=== PATIENT | female | born 1985 | race African-American/Black ===

== ENCOUNTER 2017-03-01 18:52 | Emergency (ER) | payer BC ==
[2017-03-01 18:52] VITALS: BP 170/95; PULSE 125; RESP 16; TEMP 97.6; O2SAT 100
[~2017-03-01 18:52] MED LIST: ANTISOL30 EACH EAR; DOXY100T17 PO; DYAZ37.57 PO; MIREIUD IU; ST JTAB PO
--- NOTE | 2017-03-01 20:51 | PD ---
HPI Chief Complaint: Abdominal Pain Time Seen by Provider: 20:41 Travel History International Travel<30 days: No Contact w/Intl Traveler<30days: No Traveled to known affect area: No History of Present Illness HPI Patient comes in complaining of intermittent abdominal cramping ongoing for 7 days. Patient reports associated nausea. Patient denies any vomiting, loss or change in bowel or bladder, vaginal discharge, fevers, headache, shortness of breath, chest pain, or . Patient reports pain is in her back when she has pain in her abdomen. Denies anything making it better or worse. Patient reports she was recently started on medication by her customer services manager secondary to heavy menstruations passing clots. Patient reports that she is supposed be taking iron supplements per her customer services manager recommendations secondary to her anemia, but the patient states she is not very good at taking this. PFSH Past Medical History Asthma: Yes (" A CHILD") Blood Disorders: No Cancer: No Cardiovascular Problems: Yes Chemotherapy: No Chest Pain: Yes Endocrine: No Genitourinary: No Hypertension: Yes Immune Disorder: No Musculoskeletal: Yes Neurologic: No Psychiatric: No Reproductive: No Respiratory: Yes Radiation Therapy: No ?: Unknown LMP: December : 2 Para: 2 Past Surgical History AICD: No Arteriovenous Shunt: No Insulin Pump: No Joint Replacement: No Pacemaker: No Social History Alcohol Use: No Tobacco Use: No Substance Use: No Allergies-Medications (Allergen,Severity, Reaction): Coded Allergies: No Known Allergies (Verified Adverse Reaction, Unknown, 03/01/17) VERIFIED AND UPDATED 11/08/05 Reported Meds & Prescriptions Reported Meds & Active Scripts Active Zofran Odt (Ondansetron Odt) 4 Mg Tab 4 Mg SL Q6HR PRN Tramadol (Tramadol HCl) 50 Mg Tab 50 Mg PO Q8H PRN Reported Norethindrone (Norethindrone Acetate) 5 Mg Tab 5 Mg PO BID Review of Systems Except as stated in HPI: all other systems reviewed are Neg Physical Exam Narrative GENERAL: Well-developed, overly nourished, in no acute distress, and non-ill appearing. SKIN: Focused skin assessment warm and dry. HEAD: Atraumatic. Normocephalic. EYES: Pupils equal and round. EOMI. No scleral icterus. No injection or drainage. ENT: No nasal bleeding or discharge. Mucous membranes pink and moist. NECK: Trachea midline. Supple. No nuclear rigidity. CARDIOVASCULAR: Regular rate and rhythm. No murmur appreciated. RESPIRATORY: No accessory muscle use. No respiratory distress. Clear to auscultation. Breath sounds equal bilaterally. GASTROINTESTINAL: Abdomen soft, non-tender, nondistended, and no guarding. Hepatic and splenic margins not palpable. Normal bowel sounds 4. No pulsatile mass. MUSCULOSKELETAL: No obvious deformities. No clubbing. No cyanosis. No edema. Full range of motion. NEUROLOGICAL: Awake and alert. No obvious cranial nerve deficits. Motor grossly within normal limits. Normal speech. PSYCHIATRIC: Appropriate mood and affect; insight and judgment normal. Data Data Last Documented VS Vital Signs Date Time Temp Pulse Resp B/P (MAP) Pulse Ox O2 Delivery O2 Flow Rate FiO2 03/01/17 23:55 105 20 137/84 (101) 100 03/01/17 21:25 Room Air 03/01/17 18:52 97.6 Orders Orders Complete Blood Count With Diff (03/01/17 20:47) Comprehensive Metabolic Panel (03/01/17 20:47) Lipase (03/01/17 20:47) Urinalysis - C+S If Indicated (03/01/17 20:47) Iv Access Insert/Monitor (03/01/17 20:47) Ecg Monitoring (03/01/17 20:47) Oximetry (03/01/17 20:47) Ondansetron Inj (Zofran Inj) (03/01/17 21:00) Sodium Chloride 0.9% Flush (Ns Flush) (03/01/17 21:00) Ed Urine Pregnancytest Poc (03/01/17 20:47) Electrocardiogram (03/01/17 21:09) Ct Abd/Pel W Iv Contrast(Rout) (03/01/17 21:57) Iohexol 350 Inj (Omnipaque 350 Inj) (03/01/17 22:34) Ed Discharge Order (03/01/17 23:05) Labs Laboratory Tests Test 03/01/17 21:05 03/01/17 21:15 Urine Color YELLOW Urine Turbidity CLEAR Urine pH 6.0 Urine Specific Tiline 1.035 Urine Protein TRACE mg/dL Urine Glucose (UA) NEG mg/dL Urine Ketones 80 mg/dL Urine Occult Blood NEG Urine Nitrite NEG Urine Bilirubin NEG Urine Urobilinogen 2.0 MG/DL Urine Leukocyte Esterase SMALL Urine RBC 1 /hpf Urine WBC 5 /hpf Urine Squamous Epithelial Cells 3 /hpf Urine Amorphous Sediment RARE Urine Mucus MANY /lpf Microscopic Urinalysis Comment CULT NOT INDICATED White Blood Count 6.2 TH/MM3 Red Blood Count 4.32 MIL/MM3 Hemoglobin 7.5 GM/DL Hematocrit 25.4 % Mean Corpuscular Volume 58.8 FL Mean Corpuscular Hemoglobin 17.3 PG Mean Corpuscular Hemoglobin Concent 29.3 % Red Cell Distribution Width 20.1 % Platelet Count 493 TH/MM3 Mean Platelet Volume 8.2 FL Neutrophils (%) (Auto) 51.4 % Lymphocytes (%) (Auto) 41.6 % Monocytes (%) (Auto) 5.8 % Eosinophils (%) (Auto) 0.6 % Basophils (%) (Auto) 0.6 % Neutrophils # (Auto) 3.2 TH/MM3 Lymphocytes # (Auto) 2.6 TH/MM3 Monocytes # (Auto) 0.4 TH/MM3 Eosinophils # (Auto) 0.0 TH/MM3 Basophils # (Auto) 0.0 TH/MM3 CBC Comment DIFF FINAL Differential Comment Blood Urea Nitrogen 8 MG/DL Creatinine 0.74 MG/DL Random Glucose 78 MG/DL Total Protein 8.1 GM/DL Albumin 3.5 GM/DL Calcium Level 8.5 MG/DL Alkaline Phosphatase 59 U/L Aspartate Amino Transf (AST/SGOT) 17 U/L Alanine Aminotransferase (ALT/SGPT) 19 U/L Total Bilirubin 0.2 MG/DL Sodium Level 138 MEQ/L Potassium Level 3.6 MEQ/L Chloride Level 108 MEQ/L Carbon Dioxide Level 22.1 MEQ/L Anion Gap 8 MEQ/L Estimat Glomerular Filtration Rate 110 ML/MIN Lipase 211 U/L [facility] Medical Decision Making Medical Screen Exam Complete: Yes Emergency Medical Condition: Yes Interpretation(s) Last Impressions Abdomen/Pelvis CT 03/01/174 Signed Impressions: Service Date/Time: Wednesday, March 01, 2017 22:16 - CONCLUSION: 8 cm uterine mass. Joseph Deleon MD Differential Diagnosis UTI, pancreatitis, metabolic disturbance, dehydration, gastritis, other Narrative Course Patient in no obvious distress upon re-evaluation. All pertinent laboratory/ Radiology result(s) discussed with patient. Discussed patient with Dr. Villa, who saw and evaluated the patient is in agreement with plan of care and disposition. Any questions/concerns in reference to patient diagnosis/ condition discussed and clarified prior to patient's discharge. Reinforced sheer importance of close follow up with patient's primary physician or primary care clinic. Instructed patient to return to ED immediately, if symptoms return/ worsen. Patient showed understanding of above instructions. Further instructions and recommendations were detailed in discharge paperwork. Patient ambulated without difficulty out of ED at discharge. Diagnosis Primary Impression: Uterine mass Additional Impression: Anemia Qualified Codes: D64.9 - Anemia, unspecified Patient Instructions: General Instructions Additional Instructions: Follow-up with your customer services manager as scheduled for further evaluation of the mass noted on CT today. Take iron supplements as previously instructed by your customer services manager to help improve your anemia. Take all medication as prescribed. Return to the emergency department if symptoms get worse. Med/Other Pt SpecificInfo: Prescription(s) given Scripts Ondansetron Odt (Zofran Odt) 4 Mg Tab 4 MG SL Q6HR Y for Nausea/Vomiting, #12 TAB 0 Refills Prov: Jeremy Villa MD 03/01/17 Tramadol (Tramadol) 50 Mg Tab 50 MG PO Q8H Y for PAIN GREATER THAN 7, #7 TAB 0 Refills Prov: Jeremy Villa MD 03/01/17 Disposition: 01 DISCHARGE HOME Condition: Stable Rafa Ambriz Mar 01, 2017 20:51
[2017-03-01] MEDS ORDERED: ONDANSETRON HCL 4 MG/2 ML VIAL IVP ONE (21:00)
[2017-03-01] MEDS ORDERED: SODIUM CHLORIDE 0.9% FLUSH 10 ML FLUSH IV FLUSH PRN (21:00)
[2017-03-01 21:25] VITALS: BP 144/69; PULSE 88; RESP 20; O2SAT 100
[2017-03-01] MEDS ORDERED: NORE5TAB PO (21:33)
[2017-03-01 21:45] LABS: AUTOMATED NEUTROPHIL # 3.2 TH/MM3 (1.8-7.7); BASOPHIL % 0.6 % (0.0-2.0); EOSINOPHIL % 0.6 % (0.0-4.0); HEMATOCRIT 25.4 % (35.0-46.0); HEMO FLAGS DIFF FINAL; LYMPH % 41.6 % (9.0-44.0); LYMPHOCYTE # 2.6 TH/MM3 (1.0-4.8); MEAN CELL VOLUME 58.8 FL (80.0-100.0); MEAN CORPUSCULAR HEMOGLOBIN 17.3 PG (27.0-34.0); MEAN CORPUSCULAR HGB CONC 29.3 % (32.0-36.0); MONO % 5.8 % (0.0-8.0); NEUT % 51.4 % (16.0-70.0); PLATELET COUNT 493 TH/MM3 (150-450); RED BLOOD COUNT 4.32 MIL/MM3 (4.00-5.30); RED CELL DISTRIBUTION WIDTH 20.1 % (11.6-17.2); WHITE BLOOD COUNT 6.2 TH/MM3 (4.0-11.0)
[2017-03-01 21:53] LABS: BLOOD, URINE NEG (NEG); COMMENT (UR) CULT NOT INDICATED; CULTURE IF INDICATED CULT NOT INDICATED; GLUCOSE,URINE NEG (NEG); KETONE, URINE 80 mg/dL (NEG); MUCUS URINE MANY /lpf (OCC); NITRITE,URINE NEG (NEG); SQUAMOUS EPITHELIAL CELL URINE 3 /hpf (0-5); URINE COLOR YELLOW (YELLW/STRAW)
[2017-03-01 22:08] LABS: ALT (GPT) 19 U/L (10-53); ANION GAP 8 MEQ/L (5-15); AST (GOT) 17 U/L (15-37); BICARBONATE 22.1 MEQ/L (21.0-32.0); BLOOD UREA NITROGEN 8 MG/DL (7-18); CHLORIDE 108 MEQ/L (98-107); GLOMERULAR FILTRATION RATE 110 ML/MIN (>89); POTASSIUM 3.6 MEQ/L (3.5-5.1); SODIUM (NA) 138 MEQ/L (136-145)
[2017-03-01 22:11] LABS: ALKALINE PHOSPHATASE 59 U/L (45-117); TOTAL BILIRUBIN ADULT 0.2 MG/DL (0.2-1.0)
[2017-03-01] MEDS ORDERED: IOHEXOL 350 MG/ML 10 ML VIAL (for RAD DIAG) IVCONTRAST ONE (22:34)
--- NOTE | 2017-03-01 22:48 | RADRPT ---
EXAM DATE/TIME: 03/01/2017 22:16 [facility] COMPARISON: No previous studies available for comparison. INDICATIONS : Diffuse abdominal pain with nausea and vomiting. IV CONTRAST: 80 cc Omnipaque 350 (iohexol) IV ORAL CONTRAST: No oral contrast ingested. RADIATION DOSE: 15.01 CTDIvol (mGy) MEDICAL HISTORY : Hypertension. SURGICAL HISTORY : Appendectomy. ENCOUNTER: Initial ACUITY: 1 day PAIN SCALE: 10/10 LOCATION: abdomen TECHNIQUE: Volumetric scanning of the abdomen and pelvis was performed. Using automated exposure control and ad justment of the mA and/or kV according to patient size, radiation dose was kept as low as reasonably achievable to obtain optimal diagnostic quality images. DICOM format image data is available electro nically for review and comparison. FINDINGS: LOWER LUNGS: The visualized lower lungs are clear. LIVER: Homogeneous density without lesion. There is no dilation of the biliary tree. No calcified gallston es. SPLEEN: Normal size without lesion. PANCREAS: Within normal limits. KIDNEYS: Normal in size and shape. There is no mass, stone or hydronephrosis. ADRENAL GLANDS: Within normal limits. VASCULAR: There is no aortic aneurysm. BOWEL/MESENTERY: No dilated loops of small or large bowel. No evidence of free fluid. ABDOMINAL WALL: Within normal limits. RETROPERITONEUM: There is no lymphadenopathy. BLADDER: No wall thickening or mass. REPRODUCTIVE: Abnormal appearance of the uterus with uterine enlargement and an 8 cm mass centrally; the mass is lo cated in the fundal region. The mass has fairly smooth margins and inhomogeneous pattern of enhancem ent. No evidence of free fluid in the cul-de-sac. Adnexal regions are grossly unremarkable. No jonathan dence of deep pelvic adenopathy. INGUINAL: There is no lymphadenopathy or hernia. MUSCULOSKELETAL: Within normal limits for patient age. No sclerotic lesions seen. CONCLUSION: 8 cm uterine mass. Joseph Deleon MD on March 01, 2017 at 22:43 Board Certified Radiologist. This report was verified electronically.
[2017-03-01] MEDS ORDERED: TRAM50TA PO (23:04)
[2017-03-01] MEDS ORDERED: ZOFR4TAB3 SL (23:04)
[2017-03-01 23:55] VITALS: BP 137/84
--- NOTE | 2017-03-02 10:32 | EKG ---
Date Performed: 03/01/2017 Time Performed: 21:09:56 PTAGE: 31 years EKG: Sinus rhythm WITH FIRST DEGREE AV BLOCK NONSPECIFIC T-WAVE ABNORMALITY ABNORMAL ECG PREVIOUS TRACING : 08/27/2011 17.53 DOCTOR: Alfredito Plascencia Interpretating Date/Time 03/02/2017 10:30:08
== END 2017-03-01 23:56 | disposition home or self-care (01) ==
LOC: NEPD 18:52
DX: N85.8 Other specified noninflammatory disorders of uterus (principal); D64.9 Anemia, unspecified; I10 Essential (primary) hypertension
CPT/HCPCS: 74177; 80053; 81001; 83690; 84703; 85025; 93005; 96374; 99285; J2405; Q9967

== ENCOUNTER 2017-05-09 05:26 | Observation (INO) | payer BC ==
[~2017-05-09] VITALS: Ht 162.6 cm; Wt 116.7 kg
[~2017-05-09 05:26] MED LIST changes: -ANTISOL30 EACH EAR; -DOXY100T17 PO; -DYAZ37.57 PO; -MIREIUD IU; +NORE5TAB PO; +OSEL30 PO; -ST JTAB PO
[2017-05-09] MEDS ORDERED: CHLORHEXIDINE GLUCONATE 2 % 1 PACK (2 CLOTHS) TOPICAL PRN (05:45)
[2017-05-09] MEDS ORDERED: METOPROLOL TARTRATE 25 MG TAB PO PRN (05:45)
[2017-05-09] MEDS ORDERED: SODIUM CHLORID 0.9% 500 ML IV PRN (05:45)
[2017-05-09] MEDS ORDERED: ceFAZolin 2 GM PREMIX 50 ML IV SCH ×2 (05:45→06:00)
[2017-05-09] MEDS ORDERED: POVIDONE IODINE 5% (ANTISEPSIS KIT) 4 APPLICATIONS EACH NARE PRN (05:45)
[2017-05-09] MEDS ORDERED: LACTATED RINGER'S 1000 ML IV PRN (05:45)
[2017-05-09 06:50] LABS: BASOPHIL % 0.7 % (0.0-2.0); EOSINOPHIL # 0.1 TH/MM3 (0-0.4); EOSINOPHIL % 3.6 % (0.0-4.0); HEMATOCRIT 30.1 % (35.0-46.0); HEMOGLOBIN 9.3 GM/DL (11.6-15.3); LYMPH % 52.3 % (9.0-44.0); LYMPHOCYTE # 1.5 TH/MM3 (1.0-4.8); MEAN CORPUSCULAR HEMOGLOBIN 19.8 PG (27.0-34.0); MEAN PLATELET VOLUME 8.3 FL (7.0-11.0); MONO % 7.3 % (0.0-8.0); MONOCYTE # 0.2 TH/MM3 (0-0.9); NEUT % 36.1 % (16.0-70.0); PLATELET COUNT 419 TH/MM3 (150-450); RED BLOOD COUNT 4.71 MIL/MM3 (4.00-5.30); RED CELL DISTRIBUTION WIDTH 23.9 % (11.6-17.2); WHITE BLOOD COUNT 2.8 TH/MM3 (4.0-11.0)
[2017-05-09] MEDS ORDERED: LIDOCAINE 1%/EPINEPHrine 1:100,000 SOLN 50 ML VIAL ONE (06:59)
[2017-05-09] MEDS ORDERED: ACETAMINOPHEN 1000 MG/100 ML 100 ML IV ONE (08:08)
[2017-05-09 10:01] LABS: HEMATOCRIT 28.5 % (35.0-46.0); HEMOGLOBIN 8.8 GM/DL (11.6-15.3); MEAN CELL VOLUME 64.5 FL (80.0-100.0); MEAN CORPUSCULAR HEMOGLOBIN 19.9 PG (27.0-34.0); MEAN CORPUSCULAR HGB CONC 30.9 % (32.0-36.0); MEAN PLATELET VOLUME 8.1 FL (7.0-11.0); PLATELET COUNT 413 TH/MM3 (150-450); RED BLOOD COUNT 4.41 MIL/MM3 (4.00-5.30); RED CELL DISTRIBUTION WIDTH 24.5 % (11.6-17.2); WHITE BLOOD COUNT 4.3 TH/MM3 (4.0-11.0)
[2017-05-09] MEDS ORDERED: MIDAZOLAM HCL 2 MG/2 ML VIAL ONE (10:51)
--- NOTE | 2017-05-09 10:59 | PD.OP ---
Operative Report Date of Surgery: May 09, 2017 Preoperative Diagnosis: (1) Intramural leiomyoma of uterus (2) Dysfunctional uterine bleeding Postoperative Diagnosis: (1) Intramural leiomyoma of uterus (2) Dysfunctional uterine bleeding Procedure: LAVH bilateral salpingectomy Anesthesia: general Surgeon: Joaquim Augustine Booth Cashier(s): Joaquim Brand MD May 09, 2017 10:59
[2017-05-09] MEDS ORDERED: IBUPROFEN 600 MG TAB PO PRN (11:00)
[2017-05-09] MEDS ORDERED: SODIUM CHLORIDE 0.9% FLUSH 10 ML FLUSH IV FLUSH PRN (11:00)
[2017-05-09] MEDS ORDERED: oxyCODONE/ACETAMINOPHEN 5 MG/325 MG TAB PO PRN (11:00)
[2017-05-09] MEDS ORDERED: HYDROmorphone HCL PF 1 MG/ML VIAL IVP PRN (11:00)
[2017-05-09] MEDS ORDERED: diphenhydrAMINE HCL 25 MG CAP PO PRN (11:00)
[2017-05-09] MEDS ORDERED: ONDANSETRON HCL 4 MG/2 ML VIAL IVP PRN (11:00)
[2017-05-09] MEDS ORDERED: *morphine SULFATE 4 MG/ML PERIprocedure ONLY ONE (11:03)
[2017-05-09] MEDS: KETOROLAC TROMETHAMINE 30 MG/ML (IVP) VIAL IVP PRN ×2 (11:20→16:59)
[2017-05-09] MEDS ORDERED: HYDROmorphone HCL PF 2 MG/ML VIAL ONE (11:33)
[2017-05-09 12:10] VITALS: BP 108/59; PULSE 95; RESP 14; TEMP 98.1; O2SAT 100
[2017-05-09] MEDS ORDERED: DO NOT ADM ANY ANTICOAGULANT DRUGS PRN (12:30)
[2017-05-09 16:00] VITALS: BP 103/55; PULSE 89; RESP 16; TEMP 98.6; O2SAT 97
[2017-05-09 17:06] LABS: HEMATOCRIT 27.3 % (35.0-46.0); HEMOGLOBIN 8.4 GM/DL (11.6-15.3)
[2017-05-09 20:00] VITALS: BP 106/57; PULSE 94; RESP 18; TEMP 99; O2SAT 99
[2017-05-09] MEDS ORDERED: SODIUM CHLORIDE 0.9% FLUSH 10 ML FLUSH IV FLUSH SCH (21:00)
[2017-05-10] VITALS: BP 109/66; PULSE 92; RESP 18; TEMP 98.2
[2017-05-10 05:45] VITALS: BP 100/65; PULSE 90; RESP 18; TEMP 98.4
[2017-05-10 08:10] VITALS: BP 116/74; PULSE 83; RESP 18; TEMP 97.8; O2SAT 98
--- NOTE | 2017-05-10 08:32 | HHI.OB ---
Subjective Post Operative Day: 1 Remarks doing well Objective Vitals/I&O Vital Signs Date Time Temp Pulse Resp B/P (MAP) Pulse Ox O2 Delivery O2 Flow Rate FiO2 05/10/17 08:10 97.8 83 18 116/74 (88) 98 05/10/17 05:45 98.4 90 18 100/65 (77) 05/10/17 00:00 98.2 92 18 109/66 (80) 05/09/17 20:00 99.0 94 18 106/57 (73) 99 05/09/17 16:00 98.6 89 16 103/55 (71) 97 05/09/17 12:10 98.1 95 14 108/59 (75) 100 05/09/17 11:50 87 16 110/57 (74) 100 Room Air 05/09/17 11:30 92 16 106/54 (71) 100 Room Air 05/09/17 11:15 82 16 105/57 (73) 100 Room Air 05/09/17 11:00 80 16 100/56 (71) 100 Nasal Cannula 2 05/09/17 10:44 98.5 96 16 84/49 (61) 100 Nasal Cannula 2 Intake & Output 05/10/17 05/10/17 07:00 19:00 Intake Total 480 ml Output Total 1000 ml Balance -520 ml Intake Oral 480 ml Output Urine Total 1000 ml Result Diagram: 05/09/17 7068 Objective Remarks GENERAL: Well-nourished, well-developed patient. ABDOMEN/GI: Abdomen soft, non-tender, bowel sounds present. Incision: Clean, dry and intact. Fundus: Firm, non-tender at umbilicus. GENITOURINARY: Light to moderate bleeding. EXTREMITIES: No cyanosis or edema, non-tender, without signs of DVT. Medications and IVs Current Medications Medications (Trade) Dose Ordered Sig/Yanna Route Start Time Stop Time Status Last Admin Lactated Ringer's 1,000 ml @ 30 mls/hr Q24H PRN IV 05/09/17 05:45 05/12/17 05:44 05/09/17 06:25 Sodium Chloride 500 ml @ 30 mls/hr [id number] PRN IV 05/09/17 05:45 05/12/17 05:44 (Lopressor) 25 mg CHUTE BOSS PRN PO 05/09/17 05:45 05/12/17 05:44 (Betadine 5% Antisepsis Kit) 1 applic CHUTE BOSS PRN EACH NARE 05/09/17 05:45 05/12/17 05:44 05/09/17 06:31 (Chlorhexidine 2% Cloth) 3 pack CHUTE BOSS PRN TOPICAL 05/09/17 05:45 05/12/17 05:44 05/09/17 06:00 (NS Flush) 2 ml UNSCH PRN IV FLUSH 05/09/17 11:00 (NS Flush) 2 ml BID IV FLUSH 05/09/17 21:00 (Toradol Inj) 30 mg Q6H PRN IVP 05/09/17 11:00 05/14/17 10:59 05/09/17 16:59 (Percocet 5-325 Mg) 1 tab Q4H PRN PO 05/09/17 11:00 (Percocet 5-325 Mg) 2 tab Q4H PRN PO 05/09/17 11:00 (Dilaudid Pf Inj) 1 mg Q4H PRN IVP 05/09/17 11:00 (Benadryl) 25 mg Q6H PRN PO 05/09/17 11:00 (Zofran Inj) 4 mg Q6H PRN IVP 05/09/17 11:00 Miscellaneous Information ALL NURSING DEPARTME... UNSCH PRN .XX 05/09/17 12:30 05/10/17 12:29 Assessment/Plan Problem List: (1) Dysfunctional uterine bleeding ICD Codes: N93.8 - Other specified abnormal uterine and vaginal bleeding Joaquim Augustine MD May 10, 2017 08:32
--- NOTE | 2017-05-10 08:33 | HHI.DCPOC ---
Discharge Care Plan Diagnosis: (1) Intramural leiomyoma of uterus Report Symptoms to Your Doctor -Temperature above 100.5 degrees -Redness, of incision or excessive or foul smelling drainage -Unusual pain or calf pain -Increased vaginal bleeding -Painful or difficulty urinating -Feelings of extreme sadness or anxiety after 2 weeks Goals to Promote Your Health * To prevent worsening of your condition and complications * To maintain your health at the optimal level Directions to Meet Your Goals Take your medications as prescribed Follow your dietary instruction Follow activity as directed Ensure plenty of rest for recovery Drink fluids for hydration Keep your appointments as scheduled Take your immunizations and boosters as scheduled If your symptoms worsen call your PCP, if no PCP go to Urgent Care Center or Emergency Room Smoking is Dangerous to Your Health. Avoid second hand smoke Call the 24-hour crisis hotline for domestic abuse at Joaquim Augustine MD May 10, 2017 08:33
[2017-05-10] MEDS ORDERED: OXYC1TAB63 PO (08:34)
--- NOTE | 2017-05-10 08:45 | HHI.DS ---
Admission Date May 09, 2017 at 10:54 Discharge Date: May 10, 2017 Admitting Diagnosis Diagnosis: (1) Intramural leiomyoma of uterus ICD Codes: D25.1 - Intramural leiomyoma of uterus Brief History 32 yo with large fibroid uterus for [facility] Hospital Course Patient Had LAVH bilateral salpingectomy. Doing well but pt came with anemia and had 900 cc blood loss vitals stable and H&H pending Pt Condition on Discharge: Good Discharge Disposition: Discharge Home Discharge Instructions Diet Instructions: As Tolerated, No Restrictions Activities You Can Perform: Pelvic Rest Activities to Avoid: Driving for 24 hrs Follow up Referrals: LPN RN - 2 Weeks @ [facility] with Joaquim Augustine MD New Medications: Oxycodone HCl/Acetaminophen (Oxycodone-Acetaminophen 5-325) 5 Mg-325 Mg Tablet 2 TAB PO Q4H PRN for PAIN 6-10 IF TOLERATING PO, #30 TAB 0 Refills Continued Medications: Oseltamivir (Tamiflu) 30 Mg Cap Unknown Dose PO DAILY for Mgmt Viral Infection, CAP 0 Refills Discontinued Medications: Norethindrone (Norethindrone) 5 Mg Tab 5 MG PO BID, TAB 0 Refills Joaquim Augustine MD May 10, 2017 08:45
--- NOTE | 2017-05-10 09:57 | MP ---
cc: CHAPIS AUGUSTIEN DATE OF SURGERY 05/09/2017 PROCEDURE Laparoscopic-assisted vaginal hysterectomy with bilateral salpingectomy. PREOPERATIVE DIAGNOSIS Fibroid uterus and dysfunctional uterine bleeding. POSTOPERATIVE DIAGNOSIS Fibroid uterus and dysfunctional uterine bleeding, including anemia. SURGEON Dr. Chapis Augustine SOFTWARE TEST AND VALIDATION ENGINEER Eli Mora ESTIMATED BLOOD LOSS Blood loss 900 cc's COMPLICATIONS None FINDINGS Large fibroid uterus pelvic sidewall to pelvic sidewall, otherwise normal ovaries, normal fallopian tubes bilaterally. PROCEDURE IN DETAIL After informed consent, the patient taken back to the operating room where she was placed under general anesthesia, placed in the spine position, legs in Yellow-fin stirrups. The abdomen, perineum and vagina prepped and normal sterile fashion. After a time-out was taken, adequate anesthesia was assured and the Sullivan was draining well. A speculum was placed in the vagina. The cervix grasped with a single-toothed tenaculum. A HUMI uterine manipulator was placed into the cervix. At this point, gloves were changed and a 5 mm infraumbilical incision was then made after injection with 1% lidocaine with epinephrine. The abdomen was entered digitally with a 5 mm optical trocar and placement of left and right lower quadrant trocars. Once all three trocars were in, the upper and lower abdomen was normal except for this very large fibroid uterus. The fallopian tubes were taken bilaterally coming out through the mesosalpinx and dissecting them off the ovary, then the ovary was released taking the utero-ovarian ligament bilaterally. Both fallopian tubes were amputated and the ovaries were freed from the uterus. At this point, we continued down the broad ligament to the round ligaments, down to the level of the uterine arteries, created a bladder flap. We could not take the uterine arteries just because visualization was impossible secondary to this large fibroid uterus which had to be pushed [id number] just to have minimal visualization. At this point, our attention was turned to the vagina where the patient's legs were brought back in the Yellow-fin stirrups. A speculum was placed in the vagina. The uterine manipulator was removed. Tenaculum was used for traction. We incised the anterior portion of the cervix dissecting the bladder until we entered the peritoneum and the incision from above. The posterior cul-de-sac was entered without difficulty. There was a large amount of blood in the posterior cul-de-sac which was removed. There was no active bleeding at this moment. At this point, we clamped the uterosacral and cardinal ligaments bilaterally, continued up the broad ligament. There were large vessels and a lot of back bleeding from the uterus. This impeded visualization from the large fibroid uterus. We continued with little descent secondary to the size of the uterus. We continued up the broad ligament. Approximately six sutures were placed on either side. There were large uterine arteries which had to be taken with a suture. This was done and good hemostasis was finally achieved after both broad ligaments were completely clamped up to the level of our previous incision. Once the uterus was amputated, it had to be morcellated. We cored out the cervix and then had to bivalve the uterus twice to remove it from the vagina with a large fibroid being removed. Hemostasis had been achieved. The vaginal cuff was inspected. The posterior cuff was bleeding. This was oversewn with a running locking stitch across the posterior cul-de-sac approximating the posterior peritoneum. Good hemostasis was achieved. The vaginal cuff was then closed in a vertical fashion by bringing the uterosacral and cardinal ligaments together and then closing above and below that incision with [id number] sutures. Good hemostasis was achieved. Gloves were changed. The abdomen was reinsufflated. We encountered some bleeding at the bladder flap. An attempt with bipolar cautery was unsuccessful. We did not want to compromise any sutures, so a decision was made to suture tie with a laparoscopic placed suture. Self-biting needle drivers were used to place a 3-0 Vicryl through an area that was bleeding right now on top of the bladder. Good hemostasis was achieved after this was tied. Total blood loss at that point was 900 cc. We then irrigated copiously until all bleeding was inspected and there was no active bleeding at the end of the procedure. The patient tolerated the procedure well. She was taken to the recovery room in stable condition. The 5 mm trocar sites were closed easily. The vaginal cuff had no active bleeding. The patient tolerated the procedure well. MD MILA Lundberg/GOGO /10:59 AM /9:32 AM
[2017-05-10] MEDS: oxyCODONE/ACETAMINOPHEN 5 MG/325 MG TAB PO PRN ×2 (10:03→14:20)
[2017-05-10 11:58] VITALS: BP 116/69; PULSE 79; RESP 18; TEMP 98.1; O2SAT 98
[2017-05-10 12:14] LABS: HEMATOCRIT 23.6 % (35.0-46.0); HEMOGLOBIN 7.3 GM/DL (11.6-15.3)
== END 2017-05-10 14:40 | disposition home or self-care (01) ==
LOC: HSDC 05:26 → HSDI 10:54 → H1EA 11:53
PROVIDERS: ADMIT Obstetrics & Gynecology; ATTEND Obstetrics & Gynecology
DX: D25.1 Intramural leiomyoma of uterus (principal); N93.8 Other specified abnormal uterine and vaginal bleeding; D64.9 Anemia, unspecified; N83.8 Other noninflammatory disorders of ovary, fallopian tube and broad ligament; N72 Inflammatory disease of cervix uteri
CPT/HCPCS: 00840; 58554; 84702; 85014; 85018; 85025; 85027; 86850; 86900; 86901; 86920; 88307; 96374; 96376; G0378; J0131; J0690; J1170; J1885; J2250; J2270; J3010; J7120